=== PATIENT | male | born 1980 ===

== ENCOUNTER 2023-12-23 18:30 | Emergency (ER) | payer MEDICARE, MEDICAID, SELFPAY ==
--- NOTE | ~2023-12-23 | CT_ITS ---
EXAMINATION: CT ABDOMEN AND PELVIS WITH CONTRAST CLINICAL INFORMATION: Question periumbilical abscess. COMPARISON: None available. TECHNIQUE: Multidetector volumetric images were obtained from the superior aspect of the liver through the pubic symphysis following administration 85 mL of Omnipaque 350 intravenous contrast. Sagittal and coronal reformatted images were obtained on the technologist's workstation. Oral contrast: No This CT examination was performed using dose optimization techniques as appropriate, variously including the following: *Automated exposure control *Adjustment of mA and/or kV according to patient size (this includes techniques or standardized protocols for targeted exams where dose is matched to indication/reason for exam; i.e. extremities or head) *Use of iterative reconstruction technique DLP: 1156 mGy-cm FINDINGS: LUNG BASES: The visualized lung bases are unremarkable. LIVER, GALLBLADDER, AND BILIARY TREE: Both hypoattenuation of the hepatic parenchyma is consistent with steatosis. No focal lesions. Liver is normal in size. No biliary ductal dilatation. The gallbladder is unremarkable with no evidence of radiopaque gallstones, gallbladder wall thickening, or obvious pericholecystic inflammatory changes. PANCREAS: Unremarkable. SPLEEN: Unremarkable. ADRENAL GLANDS: Unremarkable. KIDNEYS AND URETERS: The kidneys are normal in size, shape, and attenuation. No hydronephrosis, hydroureter, or calculi seen. No perinephric stranding. Small subcentimeter foci of cortical hypoattenuation kidneys are too small to characterize, though statistically favored to correspond to simple cysts. No recommended imaging follow-up. BLADDER: Unremarkable. GASTROINTESTINAL TRACT: Stomach, small bowel, and colon are normal in caliber. No bowel wall thickening or surrounding inflammatory changes. Appendix is normal. No intraperitoneal free fluid or free air. ABDOMINAL WALL: No significant hernia is appreciated. No abscess. LYMPH NODES: Normal. VASCULAR: Circumaortic left renal vein. Abdominal aorta is normal in caliber without significant atherosclerotic disease. PELVIC VISCERA: The prostate and seminal vesicles are unremarkable. OSSEOUS STRUCTURES: Minimal degenerative disc disease in the thoracolumbar junction. A few body heights are normal. No fracture or spondylolisthesis. 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 Cortical irregularity left femoral head superolaterally may correspond to an old impaction deformity or prior surgical change. CT/CT abdomen pelvis w IV con IMPRESSION: 1. No acute intra-abdominal or intrapelvic abnormalities. No evidence of periumbilical abscess. 2. Hepatic steatosis. Fleischner guidelines were followed.
[2023-12-23 18:48] VITALS: BP 155/98; PULSE 98; RESP 20; TEMP 36.6; O2SAT 98; BMI 38.0
[2023-12-23] MEDS: diphenhydrAMINE HCL 50 MG/ML VIAL 25 MG IVPUSH (19:35)
[2023-12-23] MEDS: LORazepam 2 MG/ML VIAL IVPUSH (19:35)
[2023-12-23 19:37] LABS: MANUAL DIFF FLAG NO
[2023-12-23 19:40] LABS: Basophils Percent Auto 0.5 % (0-2); Eosinophils Absolute Auto 0.3 X10*3/uL (0.0-0.4); Eosinophils Percent Auto 3.4 % (0-4); Hematocrit 43.3 % (42.0-52.0); Hemoglobin 15.3 g/dl (14.0-18.0); Imm Gran Abs Auto 0.03 X10*3/uL (0.00-0.03); Imm Gran Pct Auto 0.4 % (0.0-0.4); Lymphocytes Percent Auto 24.7 % (20-40); Mean Corpuscular HGB Conc 35.3 g/dl (31.0-36.0); Mean Corpuscular Hemoglobin 28.8 pg (27.0-33.0); Mean Corpuscular Volume 81.4 fL (80.0-98.0); Mean Platelet Volume 10.8 fL (9.4-12.4); Monocytes Absolute Auto 0.5 X10*3/uL (0.1-1.2); Monocytes Percent Auto 6.2 % (2-11); Neutrophils Absolute Auto 5.3 x10*3/uL (2.0-8.3); Neutrophils Percent Auto 64.8 % (45-73); Platelet Count 151 X10*3/uL (160-400); Red Blood Count 5.32 X10*6/uL (4.60-5.80); Red Cell Distribution Width 12.5 % (11.0-16.0); White Blood Count 8.2 X10*3/uL (4.8-10.8)
[2023-12-23 19:53] LABS: Alanine Aminotransferase 51 U/L (0-40); Albumin Level 4.7 g/dL (3.5-5.0); Alkaline Phosphatase 72 U/L (39-117); Anion Gap 12 (12-20); Aspartate Amino Transferase 21 U/L (5-37); Bilirubin Total 0.4 mg/dL (0.0-1.0); Blood Urea Nitrogen 14 mg/dL (9-16); Calcium 9.3 mg/dL (8.4-10.2); Carbon Dioxide 26 mmol/L (22-29); Chloride 107 mmol/L (96-108); Creatinine Clr Calc Pharmacy 104.2; Estimated Glomerular Filt Rate > 60; Glucose Random 99 mg/dL (60-115); Lipase 23 U/L (8-78); Potassium 3.6 mmol/L (3.3-5.1); Sodium 141 mmol/L (135-145); Total Protein 7.8 g/dL (6.5-8.0)
--- NOTE | 2023-12-23 20:06 | ED.GENADULT ---
HPI - General Adult General Chief complaint: Abdominal Pain Stated complaint: ?Cyst Time Seen by Provider: 12/23/23 19:15 Source: patient, family (Patient's brother is bedside), RN notes reviewed and old records reviewed Mode of arrival: ambulatory Limitations: language barrier (Patient has a history of severe intellectual disability and is nonverbal at baseline) History of Present Illness HPI narrative: 43-year-old male with past medical history significant for intellectual disability presents for evaluation of foul-smelling discharge from his belly button. Per the patient's brother who is bedside he reports that the patient has been complaining of abdominal pain When he looked at the area there was some drainage from the belly button pain The patient's brother reports this was foul-smelling They have not been any reported fevers at home The patient is very anxious and has nausea when anxious but has not had any vomiting at home The patient's brother is a somewhat limited historian he states ?our mother usually takes him here but she is very sick and can not come today. ? Related Data Previous Rx's Medication Instructions Recorded cephalexin 500 mg capsule 500 mg PO QID #28 caps 12/23/23 mupirocin 2 % topical ointment 1 appl topical BID 7 days #22 grams 12/23/23 Allergies Allergy/AdvReac Type Severity Reaction Status Date / Time No Known Allergies Allergy Verified 12/23/23 18:48 Review of Systems Constitutional: Constitutional: Denies body ache(s), Denies chills and Denies fever(s) Cardiovascular: Cardiovascular: Denies chest pain and Denies dyspnea Respiratory: Respiratory: Denies cough and Denies dyspnea Gastrointestinal: Gastrointestinal: Reports abdominal pain, Denies nausea and Denies vomiting Musculoskeletal: Musculoskeletal: Denies back pain Integumentary/Breasts: Skin/Breast: Reports erythema and Reports rash Comments: Foul-smelling drainage from the belly button PMFSH Social History Social History Advance Directives: No Advance Directives Information Provided: No Physical Exam ED Vital Signs: Vital Signs - 24 hr 12/23/23 18:48 Temperature 98 F Pulse Rate 98 Respiratory Rate 20 Blood Pressure 155/98 H Pulse Oximetry 98 Oxygen Delivery Method Room Air BMI result Body Mass Index 38.0 Const General: healthy appearing, comfortable, alert and awake Nutritional Appearance: well nourished HENNE Head: Yes normocephalic and Yes atraumatic Eyes Eyelids: Yes eyelids normal Conjunctivae: conjunctivae normal Sclerae: sclerae normal Corneas: corneas normal Pupils: Equal, round and reactive pupils present EOM: EOMs intact bilaterally Neck Neck: Yes full ROM Resp Effort & Inspection: normal respiratory effort, able to speak in complete sentences and not labored GI Inspection: Yes obesity Palpation (GI): Soft to palpation, Firmness to palpation present (GI), nontender and no guarding Skin Other: There is a small amount of purulent, foul-smelling discharge within the umbilicus. There is no surrounding erythema, no fluctuance or induration on palpation. General skin exam: elasticity normal Neuro Cranial nerves: Yes Equal, round and reactive pupils present and Yes Bilaterally intact EOM present Cognition (Neuro): normal cognition Extrem Other: Moving all extremities well without any obvious deformities Course Reevaluation(s) Reevaluation #1: Discussed CT scan with the brother, no concerning findings. We will still treat with cephalexin and mupirocin for local cellulitis Time: 22:01 Medications Administered Discontinued Medications Generic Name Dose Route Start Last Admin Trade Name Rikq PRN Reason Stop Dose Admin Diphenhydramine HCl 25 mg 12/23/23 19:22 12/23/23 19:35 Diphenhydramine Hcl 50 Mg/Ml Vial IVPUSH 12/23/23 19:23 25 mg ONCE ONE Administration Iohexol 100 ml 12/23/23 20:07 12/23/23 20:11 Iohexol 350 Mg/Ml 100 Ml Infus..Btl IV 12/23/23 20:08 85 ml ONCE ONE Administration Lorazepam 2 mg 12/23/23 19:22 12/23/23 19:35 Lorazepam 2 Mg/Ml Vial IVPUSH 12/23/23 19:23 2 mg ONCE ONE Administration Medical Decision Making Medical Decision Making MDM Narrative: 43-year-old male who is nonverbal at baseline, very limited historian presents for evaluation abdominal pain and foul-smelling drainage from his abdomen/umbilicus. On exam, the patient has no significant tenderness, there is evident purulent drainage from the umbilicus. I can not palpate any underlying masses. However given the patient's severe intellectual disability and inability to reports signs and symptoms, we will get labs, CT scan the abdomen pelvis to better evaluate Differential Diagnosis Differential Diagnoses: The differential diagnosis associated with the presentation includes Abdominal wall cellulitis Abdominal wall abscess Intra-abdominal abscess Abdominal pain Constipation Lab Data MDM Lab Attestation statement: I reviewed the patient's lab results. No leukocytosis or anemia. Normal platelet count. No significant electrolyte abnormalities 12/23/23 19:33 12/23/23 19:33 Labs: Lab Results 12/23/23 Range/Units 19:33 WBC 8.2 (4.8-10.8) X10*3/uL RBC 5.32 (4.60-5.80) X10*6/uL Hgb 15.3 (14.0-18.0) g/dl Hct 43.3 (42.0-52.0) % MCV 81.4 (80.0-98.0) fL MCH 28.8 (27.0-33.0) pg MCHC 35.3 (31.0-36.0) g/dl RDW 12.5 (11.0-16.0) % Plt Count 151 L (160-400) X10*3/uL MPV 10.8 (9.4-12.4) fL Immature Gran % (Auto) 0.4 (0.0-0.4) % Neut % (Auto) 64.8 (45-73) % Lymph % (Auto) 24.7 (20-40) % Churchill % (Auto) 6.2 (2-11) % Eos % (Auto) 3.4 (0-4) % Baso % (Auto) 0.5 (0-2) % Lymph # (Auto) 2.0 (1.2-4.9) X10*3/uL Churchill # (Auto) 0.5 (0.1-1.2) X10*3/uL Eos # (Auto) 0.3 (0.0-0.4) X10*3/uL Baso # (Auto) 0.0 (0.0-0.2) X10*3/uL Abs Immat Gran (auto) 0.03 (0.00-0.03) X10*3/uL Absolute Neuts (auto) 5.3 (2.0-8.3) x10*3/uL Absolute Nucleated RBC 0.000 (0.0-0.012) X10*3/uL Nucleated RBC % (auto) 0.0 (0.0-0.2) /100WBC Sodium 141 (135-145) mmol/L Potassium 3.6 (3.3-5.1) mmol/L Chloride 107 (96-108) mmol/L Carbon Dioxide 26 (22-29) mmol/L Anion Gap 12 (12-20) BUN 14 (9-16) mg/dL Creatinine 0.93 (0.5-1.4) mg/dL Estim Creat Clear Calc 104.2 Estimated GFR > 60 Random Glucose 99 (60-115) mg/dL Calcium 9.3 (8.4-10.2) mg/dL Total Bilirubin 0.4 (0.0-1.0) mg/dL AST 21 (5-37) U/L ALT 51 H (0-40) U/L Alkaline Phosphatase 72 (39-117) U/L Total Protein 7.8 (6.5-8.0) g/dL Albumin 4.7 (3.5-5.0) g/dL Lipase 23 (8-78) U/L Independent Interpretation I performed an independent interpretation of an: CT Scan (No obvious abdominal wall cellulitis or abscess) Radiology Impression Discussion of test interpretation with radiology: I have reviewed the radiologist's reading. (No acute intra-abdominal or intro pelvic abnormalities. No evidence of periumbilical abscess) Discharge Plan Discharge Clinical Impression: Cellulitis of umbilicus Patient Disposition: Home, Self-Care Instructions: Cellulitis (ED) Additional Instructions: Take cephalexin 4 times daily for 1 week. Use mupirocin twice daily for 5 days. Return for new or worsening symptoms Prescriptions: New cephalexin 500 mg capsule 500 mg PO QID Qty: 28 0RF mupirocin 2 % ointment 1 appl topical BID 7 Days Qty: 22 0RF
[2023-12-23] MEDS: iohexoL 350 MG/ML 100 ML INFUS..BTL IV (20:11)
== END 2023-12-23 22:36 | disposition home or self-care (01) ==
PROVIDERS: Physician Assistant; Emergency Provider Emergency Medicine; PCP Internal Medicine
DX: L03.316 Cellulitis of umbilicus (principal); R10.9 Unspecified abdominal pain; Z79.899 Other long term (current) drug therapy
CPT/HCPCS: 36415; 74177; 80053; 83690; 85025; 96374; 96375; 99284; J1200; J2060; Q9967

== ENCOUNTER 2024-05-04 22:45 | Emergency (ER) | payer OTHER, SELFPAY ==
[2024-05-04 22:47] VITALS: PULSE 99; O2SAT 98
[2024-05-04 22:58] VITALS: BP 109/66; PULSE 102; RESP 22; TEMP 36.6; O2SAT 97; BMI 48.8
--- NOTE | 2024-05-05 00:16 | ED_ITS ---
HPI - General Adult General Chief complaint: General Medical Stated complaint: FAMILY WANTS EVAL? Time Seen by Provider: 05/04/24 22:59 Source: patient Mode of arrival: ambulatory Limitations: no limitations History of Present Illness ED Provider: Dr. Edvin Luu HPI narrative: 43-year-old male with a history of intellectual disability who was brought to emergency department by his brother's for evaluation of rhinorrhea and frequently blowing his nose. According to his brother's he has no other symptoms. He has not had fever, sore throat, cough, shortness of breath. There were concerned that he has continued to have a runny nose in his blowing his nose frequently and they wanted him evaluated in the emergency department and treated with medications. The patient is nonverbal. Related Data Previous Rx's ?Medication ?Instructions ?Recorded cephalexin 500 mg capsule 500 mg PO QID #28 caps 12/23/23 mupirocin 2 % topical ointment 1 appl topical BID 7 days #22 grams 12/23/23 Allergies Allergy/AdvReac Type Severity Reaction Status Date / Time No Known Allergies Allergy Verified 05/04/24 23:00 Review of Systems Review of Systems: Yes all other systems are reviewed and are negative [facility] Past Medical History [facility] Narrative: Social history: Patient lives at home with his mother. His 2 brothers are here in the emergency department with him. Social History Social History Advance Directives: No Advance Directives Information Provided: No Do you have a plan to hurt others: No Plan Physical Exam ED Vital Signs: Vital Signs - 24 hr 05/04/24 22:58 Temperature 97.9 F Pulse Rate 102 H Respiratory Rate 22 H Blood Pressure 109/66 Pulse Oximetry 97 Oxygen Delivery Method Room Air BMI result Body Mass Index 48.8 Vital signs revealed an elevated heart rate of 102 Exam: General: Awake, alert , in no distress, he is nonverbal Head: Normocephalic, atraumatic EENT: Patient was rhinorrhea from both areas Lung: breath sounds symmetric, no wheezing, rales or rhonchi Chest: symmetric movement, nontender Heart: regular rate and rhythm, normal S1, S2 no murmurs or rubs Abdomen: soft, non-tender, nondistended, normal bowel sounds Back: no vertebral tenderness, no CVAT Extremities: no deformities, moves all extremities symmetrically Medical Decision Making Medical Decision Making [facility] Narrative: 43-year-old male with a history of intellectual disability who presents emergency department for evaluation of rhinorrhea x1 day. Vital signs revealed an elevated heart rate otherwise unremarkable Patient's physical examination revealed bilateral rhinorrhea. Exam was otherwise unremarkable Differential diagnosis: ?Includes but is not limited to allergic rhinitis, viral syndrome Following evaluation was ordered: COVID-19, RSV Patient was initially treated with the following: Prednisone 40 mg orally Course: Patient's rhinorrhea is consistent with either viral syndrome or allergic rhinitis, he was started on prednisone 40 mg once a day for 5 days and given his 1st dose here in the emergency department. Patient was advised to continue taking his medications as prescribed by his providers. He was given printed and verbal instructions and discharged home in the care of his brothers. I will text the patient's brother, Javier with the COVID-19, RSV and influenza results. Discharge Plan Discharge Clinical Impression: Viral syndrome Patient Disposition: Home, Self-Care Instructions: Viral Syndrome (ED) Additional Instructions: Your runny nose is most likely caused by a virus You were given prednisone 40 mg orally here in the emergency department that should help with your runny nose. Take prednisone 20 mg pills, 2 pills once a day for 5 days. While you ?are taking prednisone, do not take any NSAIDs (Motrin, Advil, ibuprofen, Aleve, naproxen). Take your next dose tomorrow morning. I did test you for COVID-19, RSV and influenza and I will text or brother, Javier, with these results. Continue taking your medications as prescribed by your provider. Follow-up with your doctor in 2 days. Please return to the emergency department if your symptoms get worse or if you develop any symptoms that are concerning to you. Prescriptions: No Action cephalexin 500 mg capsule 500 mg PO QID Qty: 28 0RF mupirocin 2 % ointment 1 appl topical BID 7 Days Qty: 22 0RF Print Language: [place]
[2024-05-05] MEDS: predniSONE 20 MG TABLET 40 MG PO (00:27)
[2024-05-05 00:32] VITALS: BP 142/91; PULSE 78; RESP 20; TEMP 36.8; O2SAT 99
[2024-05-05 00:33] VITALS: BP 142/91; PULSE 78; RESP 20; TEMP 36.8; O2SAT 99
[2024-05-05 01:12] LABS: Influenza A PCR NEGATIVE (Negative); Influenza B PCR NEGATIVE (Negative); Resp Syncy Virus RNA Qual PCR NEGATIVE (Negative); SARS COV2 PCR INHOUSE NEGATIVE (Negative)
== END 2024-05-05 00:34 | disposition home or self-care (01) ==
PROVIDERS: Emergency Provider Emergency Medicine Emergency Medical Services
DX: B34.9 Viral infection, unspecified (principal); J34.89 Other specified disorders of nose and nasal sinuses; Z03.818 Encounter for observation for suspected exposure to other biological agents ruled out
CPT/HCPCS: 0241U; 99283